=== PATIENT | male | born 1975 | race Caucasian/White ===

== ENCOUNTER 2017-04-17 22:14 | Emergency (ER) | payer MEDICAID ==
[~2017-04-17] VITALS: Ht 172.7 cm; Wt 85.7 kg
[2017-04-17 22:18] VITALS: BP 146/99
--- NOTE | 2017-04-18 00:47 | NUR ---
TO ER BED 7
--- NOTE | 2017-04-18 00:55 | NUR ---
42 YO MALE PATIENT PRESENTS TO ED WITH C/O DRY MOUTH,VOIDING LARGE AMOUTS OF URINE AND STOMACH PAIN . PT STATES HAS MARIE LIKE THIS FOR 3 DAYS . DENIES N/V/D; SKIN IS PINK/WARM/DRY; AAOX4 WITH EVEN AND STEADY GAIT; LUNGS CLEAR BL; HR EVEN AND REGULAR; PT DENIES ANY FEVER, CP, SOB, OR COUGH AT THIS TIME; PATIENT STATES PAIN OF7 /10 AT THIS TIME; VSS; PATIENT POSITIONED FOR COMFORT; HOB ELEVATED; BEDRAILS UP X2; BED DOWN. ER MD MADE AWARE OF PT STATUS.
--- NOTE | 2017-04-18 00:57 | NUR ---
Patient being evaluated by physician at bedside.
[2017-04-18] MEDS ORDERED: KETOROLAC 30 MG/ML VIAL IVP ONE (01:05)
[2017-04-18] MEDS ORDERED: NACL 0.9% 1,000 ML IV ONE (01:05)
[2017-04-18 01:14] LABS: HEMOGLOBIN 15.8 g/dL (12.0-18.0); MEAN CORPUSCULAR HEMOGLOBIN 29 pg (27-31); MEAN CORPUSCULAR HGB CONC 32 g/dL (33-37); MEAN CORPUSCULAR VOLUME 90 fL (80-94); PLATELET COUNT (AUTO) 154 K/uL (140-450); RED BLOOD CELL COUNT(AUTO) 5.43 MIL/uL (4.20-6.10); RED CELL DISTRIBUTION WIDTH 12.1 % (11.6-13.7); WHITE BLOOD COUNT (AUTO) 4.5 K/uL (4.8-10.8)
[2017-04-18 01:24] LABS: CALCIUM 8.9 mg/dL (8.5-10.1); CARBON DIOXIDE 27.1 mmol/L (21-32); CREATININE 0.8 mg/dL (0.6-1.3); POTASSIUM 4.1 mmol/L (3.5-5.1)
[2017-04-18 01:26] LABS: BAND % (MANUAL) 1 % (0-8); EOSINOPHILS % (MANUAL) 1 % (0-4); LYMPHOCYTES % (MANUAL) 39 % (20-46); MONOCYTES % (MANUAL) 9 % (5-12); NEUTROPHILS % (MANUAL) 50 (43-65)
[2017-04-18 01:31] LABS: ALBUMIN 4.3 g/dL (3.4-5.0); TOTAL BILIRUBIN 0.8 mg/dL (0.0-1.0); TOTAL PROTEIN, SERUM 8.5 g/dL (6.4-8.2)
[2017-04-18 01:34] LABS: INR 1.1 (0.8-1.2); PROTHROMBIN TIME 10.2 secs (10.8-13.4)
[2017-04-18 01:45] LABS: PARTIAL THROMBOPLASTIN TIME 26.5 secs (22-35.6)
[2017-04-18 02:28] VITALS: BP 128/82
--- NOTE | 2017-04-18 02:28 | NUR ---
Patient discharged with v/s stable. Written and verbal after care instructions given and explained. Patient alert, oriented and verbalized understanding of instructions. Ambulatory with steady gait. All questions addressed prior to discharge. ID band removed. Patient advised to follow up with PMD. Rx of METFORMIN given. Patient educated on indication of medication including possible reaction and side effects. Opportunity to ask questions provided and answered.
== END 2017-04-18 02:28 | disposition home or self-care (01) ==
LOC: MED 22:14
DX: E11.9 Type 2 diabetes mellitus without complications (principal)
CPT/HCPCS: 36415; 74022; 80053; 81002; 85025; 85610; 85730; 93005; 96361; 96374; 99285; J1885; J7030

== ENCOUNTER 2017-08-27 13:24 | Emergency (ER) | payer MEDICAID ==
[~2017-08-27] VITALS: Ht 175.3 cm; Wt 86.6 kg
[2017-08-27 13:43] VITALS: BP 119/81
--- NOTE | 2017-08-27 13:49 | NUR ---
PATIENT BIB W/ C/O LEFT ANKLE INJURY TAIL SAWYER. LT ANKLE SWOLLEN;NO DISCOLORATION NOTED. STS TOOK 600MG/TAB IBUPROFEN.HX OF DM . PT STATES HE WAS WALKING AND TWISTED HIS ANKLE. DENIES N/V/D; SKIN IS PINK/WARM/DRY; AAOX4; LUNGS CLEAR BL; HR EVEN AND REGULAR; PT DENIES ANY FEVER, CP, SOB, OR COUGH AT THIS TIME; PATIENT STATES PAIN OF 8/10 AT THIS TIME;PATIENT POSITIONED FOR COMFORT; HOB ELEVATED; BEDRAILS UP X2; BED DOWN. ER MD MADE AWARE OF PT STATUS.
--- NOTE | 2017-08-27 13:55 | NUR ---
XRAY AT BEDSIDE;
--- NOTE | 2017-08-27 14:14 | NUR ---
DR ESPITIA AT BEDSIDE.
[2017-08-27 14:25] VITALS: BP 119/81
--- NOTE | 2017-08-27 14:25 | NUR ---
Patient discharged with v/s stable. Written and verbal after care instructions given and explained. Patient verbalized understanding. Ambulatory with steady gait. All questions addressed prior to discharge. Advised to follow up with PMD.
== END 2017-08-27 14:25 | disposition home or self-care (01) ==
LOC: MED 13:24
DX: S93.492A Sprain of other ligament of left ankle, initial encounter (principal); E11.9 Type 2 diabetes mellitus without complications; X58.XXXA Exposure to other specified factors, initial encounter; Y93.89 Activity, other specified; Y92.89 Other specified places as the place of occurrence of the external cause; Y99.8 Other external cause status
CPT/HCPCS: 29515; 73610; 99284

== ENCOUNTER 2018-05-22 09:20 | Emergency (ER) | payer MEDICAID ==
[~2018-05-22] VITALS: Ht 175.3 cm; Wt 93.0 kg
--- NOTE | 2018-05-22 09:26 | NUR ---
PATIENT AMBULATED TO BED 3 AT THIS TIME.
[2018-05-22 09:29] VITALS: BP 145/102
--- NOTE | 2018-05-22 09:35 | NUR ---
43m bib self with c/o 6/10 constant "pressure" frontal lobe/ sinus pressure pain x today upon waking up this morning. Patient also reports of intermittent dizziness, palpitations, and left arm "being warm". Patients denies any chest pain or sob. Pt is aox4. RR are even and unlabored. Noted elevated blood pressure. Er md aware of patient status. Awaiting er md roberto. Patient to pulse ox/pulse and blood pressure monitoring. Will continue to monitor.
[2018-05-22] MEDS ORDERED: KETOROLAC 30 MG/ML VIAL IM ONE (11:30)
--- NOTE | 2018-05-22 11:39 | NUR ---
pt to ct via w/c accompanied by instrument room technician
--- NOTE | 2018-05-22 11:45 | NUR ---
pt returned from ct via w/c accompanied by termite control technician, returned to 3 without incident.
[2018-05-22 12:21] LABS: BASOPHILS # (AUTO) 0.1 K/uL (0.00-0.22); BASOPHILS % (AUTO) 1.9 % (0.0-2.0); EOSINOPHILS # (AUTO) 0.2 K/uL (0-0.4); EOSINOPHILS % (AUTO) 5.9 % (0.0-4.0); HEMATOCRIT 46.1 % (36-52); HEMOGLOBIN 15.7 g/dL (12.0-18.0); LYMPHOCYTES % (AUTO) 29.6 % (20.5-51.1); MEAN CORPUSCULAR HEMOGLOBIN 31 pg (27-31); MEAN CORPUSCULAR HGB CONC 34 g/dL (33-37); MEAN CORPUSCULAR VOLUME 89.7 fL (80-94); MONOCYTES # (AUTO) 0.4 K/uL (0.8-1.0); MONOCYTES % (AUTO) 10.1 % (1.7-9.3); NEUTROPHILS # (AUTO) 1.9 K/uL (1.8-7.7); NEUTROPHILS % (AUTO) 52.5 % (42.2-75.2); PLATELET COUNT (AUTO) 149 K/uL (140-450); RED BLOOD CELL COUNT(AUTO) 5.14 MIL/uL (4.20-6.10); RED CELL DISTRIBUTION WIDTH 13.1 % (11.6-13.7); WHITE BLOOD COUNT (AUTO) 3.5 K/uL (4.8-10.8)
[2018-05-22 12:38] LABS: ANION GAP 12.5 (8-16); CREATININE 0.8 mg/dL (0.7-1.3); POTASSIUM 4.5 mmol/L (3.5-5.1)
[2018-05-22 12:41] LABS: ALBUMIN 4.2 g/dL (3.4-5.0); TOTAL BILIRUBIN 0.4 mg/dL (0.0-1.0)
[2018-05-22 13:48] VITALS: BP 134/78
--- NOTE | 2018-05-22 13:48 | NUR ---
Patient discharged with v/s stable. Written and verbal after care instructions given and explained. Patient alert, oriented and verbalized understanding of instructions. Ambulatory with steady gait. All questions addressed prior to discharge. ID band removed. Patient advised to follow up with PMD. Rx of motrin/flexeril given. Patient educated on indication of medication including possible reaction and side effects. Opportunity to ask questions provided and answered.
== END 2018-05-22 13:48 | disposition home or self-care (01) ==
LOC: MED 09:20
DX: G44.209 Tension-type headache, unspecified, not intractable (principal); R42 Dizziness and giddiness; E11.9 Type 2 diabetes mellitus without complications
CPT/HCPCS: 36415; 70450; 80053; 81002; 85025; 96372; 99285; J1885